=== PATIENT | female | born 1985 | race American Indian/Alaskan Native ===

== ENCOUNTER 2017-10-20 14:28 | Emergency (ER) | payer MEDICAID ==
[2017-10-20 16:02] LABS: Basophils % (Auto) 0.4 % (0.0-1.8); Eosinophils # (Auto) 0.2 K/mm3 (0.0-0.4); Eosinophils % (Auto) 2.4 % (0.0-4.3); Hematocrit 37.1 % (30.3-42.9); Hemoglobin 12.3 gm/dl (10.1-14.3); Lymphocytes # (Auto) 2.4 K/mm3 (1.2-5.4); Lymphocytes % (Auto) 27.4 % (13.4-35.0); Mean Corpuscular HGB Conc 33 % (30-34); Mean Corpuscular Hemoglobin 28 pg (28-32); Mean Corpuscular Volume 86 fl (79-97); Monocytes # (Auto) 0.5 K/mm3 (0.0-0.8); Monocytes % (Auto) 6.2 % (0.0-7.3); Platelet Count 332 K/mm3 (140-440); Red Blood Count 4.32 M/mm3 (3.65-5.03); Red Cell Distribution Width 14.2 % (13.2-15.2)
[2017-10-20 16:22] LABS: Alanine Aminotransferase 8 units/L (7-56); Albumin 4.3 g/dL (3.9-5); BUN/Creatinine Ratio 10; Blood Urea Nitrogen 6 mg/dL (7-17); Calcium 9.6 mg/dL (8.4-10.2); Hemolysis Index 12
[2017-10-20 16:43] LABS: Bilirubin,Urine NEG (Negative); Blood,Urine NEG (Negative); Color,Urine Amber (Yellow); Mucus,Urine 2+ /HPF; Nitrite,Urine NEG (Negative); Protein,Urine <15 mg/dL mg/dL (Negative); Urobilinogen,Urine < 2.0 mg/dL (<2.0)
--- NOTE | 2017-10-20 23:23 | Emergency Department Report ---
ED Female HPI - General Chief complaint: Abdominal Pain Stated complaint: FLU-LIKE SYMPTOMS Time Seen by Provider: 10/20/17 23:14 Source: patient, family Mode of arrival: Ambulatory Limitations: No Limitations - History of Present Illness Initial comments: Patient is 32 years old female 4, para 1 and 2 miscarriage. Patient presented with lower abdominal pain for the last 3 days associated with nausea and vomiting. Patient denied any diarrhea. Patient denied any vaginal bleeding or vaginal discharge. MD Complaint: pelvic pain -: week(s) Severity: moderate Severity scale (0 -10): 4 Quality: cramping Associated Symptoms: abdominal pain, nausea/vomiting. denies: vaginal discharge , vaginal bleeding, headaches, loss of appetite, dysuria - Related Data Sexually active: Yes : 4 Para: 1 A: 2 Allergies Allergy/AdvReac Type Severity Reaction Status Date / Time shellfish derived Allergy Shortness Verified 10/20/17 15:37 of Breath ED Review of Systems ROS: Stated complaint: FLU-LIKE SYMPTOMS Other details as noted in HPI Comment: All other systems reviewed and negative Constitutional: denies: chills, fever Respiratory: denies: cough, shortness of breath, SOB with exertion Gastrointestinal: abdominal pain, nausea, vomiting. denies: diarrhea, constipation, hematemesis Genitourinary: denies: urgency, dysuria, frequency, hematuria Musculoskeletal: denies: back pain, joint swelling Neurological: denies: headache, weakness, numbness, paresthesias ED Past Medical Hx - Surgical History Past Surgical History?: No - Social History Smoking Status: Never Smoker Substance Use Type: None ED Physical Exam - General Limitations: No Limitations General appearance: alert, in no apparent distress - Head Head exam: Present: atraumatic, normocephalic, normal inspection - Eye Eye exam: Present: normal appearance, PERRL, EOMI - Neck Neck exam: Present: normal inspection, full ROM. Absent: tenderness, meningismus - Respiratory Respiratory exam: Present: normal lung sounds bilaterally. Absent: respiratory distress, wheezes, rales, rhonchi, stridor, chest wall tenderness, accessory muscle use, decreased breath sounds, prolonged expiratory - Cardiovascular Cardiovascular Exam: Present: regular rate, normal rhythm, normal heart sounds - GI/Abdominal GI/Abdominal exam: Present: soft, normal bowel sounds. Absent: distended, tenderness, guarding, rebound, rigid, organomegaly, mass, bruit, pulsatile mass , hernia - Extremities Exam Extremities exam: Present: normal inspection, full ROM, normal capillary refill. Absent: tenderness, pedal edema, joint swelling, calf tenderness - Back Exam Back exam: Present: normal inspection, full ROM. Absent: CVA tenderness (R), CVA tenderness (L) - Neurological Exam Neurological exam: Present: alert, oriented X3, CN II-XII intact, normal gait - Skin Skin exam: Present: warm, intact, normal color. Absent: cyanosis, diaphoretic, erythema ED Course Vital Signs 10/20/17 15:39 Temperature 99 F Pulse Rate 75 Respiratory 20 Rate Blood Pressure 110/69 O2 Sat by Pulse 100 Oximetry - Reevaluation(s) Reevaluation #1: 10/21/17 01:01 Patient stated that she is feeling better, she denied any vaginal bleeding or discharge. No vomiting. I informed the patient about her ultrasounds results and the need to follow-up with her OB in the next 2-3 days. ED Medical Decision Making - Lab Data Result diagrams: 10/20/17 15:51 10/20/17 15:51 - Radiology Data Radiology results: report reviewed Referring Physician: WOOD GOETZ Patient Name: JAE CHANDLER Date of : 1985 Sex: Female Report Date: 2017-10-20 Report Status: Finalized Findings [facility] [address] [place] [address] Ultrasound Report Signed Patient: JAE CHANDLER MR#: [id number] : 1985 Acct:[id number] Age/Sex: 32 / F ADM Date: 10/20/17 Loc: ED Attending Dr: Ordering Physician: WOOD GOETZ Date of Service: 10/20/17 Procedure(s): US OB transvaginal Accession Number(s): [id number] cc: WOOD GOETZ FINAL REPORT EXAM: US OB TRANSVAGINAL HISTORY: ABDOMINAL PAIN COMPARISON: None available. TECHNIQUE: Several real-time grayscale and color Doppler images were obtained. Transabdominal and transvaginal exam. FINDINGS: Uterus measures 10.0 x 5.8 x 6.9 centimeters. There is a single live IUP. Estimated gestational age 7 weeks 2 days. Estimated delivery date June 06, 2018. heart rate 141 beats per minute. Right ovary measures 2.7 x 1.4 x 1.2 centimeters. The left ovary measures 4.0 x 3.0 x 2.6 centimeters. Within the left ovary is a 3.3 centimeter cystic structure which may reflect corpus luteum. There is gross vascular flow to the ovaries. No adnexal masses are demonstrated. Moderate subchorionic hemorrhage measuring 1.3 x 0.8 centimeters. IMPRESSION: Single live IUP. Estimated gestational age 7 weeks 2 days. Small to moderate subchorionic hemorrhage. 3.3 centimeter left ovarian cystic structure which may reflect corpus luteum. No adnexal masses. Transcribed By: LMA Dictated By: SHERIE CARRASCO MD Electronically Authenticated By: SHERIE CARRASCO MD Signed Date/Time: 10/20/172009 DD/ 09 TD/TT: 10/20/172009 Critical care attestation.: If time is entered above; I have spent that time in minutes in the direct care of this critically ill patient, excluding procedure time. ED Disposition Clinical Impression: Abdominal pain affecting Disposition: DC-01 TO HOME OR SELFCARE Is pt being admited?: No Condition: Stable Instructions: Abdominal Pain in (ED) Referrals: PRIMARY CAREMD [Primary Care Provider] - 3-5 Days
--- NOTE | 2017-10-21 00:14 | Ultrasound Report ---
FINAL REPORT EXAM: US OB < = 14 WEEKS FETUS HISTORY: ABDOMINAL PAIN COMPARISON: None available. TECHNIQUE: Several real-time grayscale and color Doppler images were obtained. Transabdominal and transvaginal exam. FINDINGS: Uterus measures 10.0 x 5.8 x 6.9 centimeters. There is a single live IUP. Estimated gestational age 7 weeks 2 days. Estimated delivery date June 06, 2018. heart rate 141 beats per minute. Right ovary measures 2.7 x 1.4 x 1.2 centimeters. The left ovary measures 4.0 x 3.0 x 2.6 centimeters. Within the left ovary is a 3.3 centimeter cystic structure which may reflect corpus luteum. There is gross vascular flow to the ovaries. No adnexal masses are demonstrated. Moderate subchorionic hemorrhage measuring 1.3 x 0.8 centimeters. IMPRESSION: Single live IUP. Estimated gestational age 7 weeks 2 days. Small to moderate subchorionic hemorrhage. 3.3 centimeter left ovarian cystic structure which may reflect corpus luteum. No adnexal masses.
[2017-10-21 01:13] VITALS: BP 110/68
== END 2017-10-21 01:15 | disposition home or self-care (01) ==
LOC: ED 14:28
DX: O26.891 Other specified pregnancy related conditions, first trimester (principal); R10.9 Unspecified abdominal pain; Z91.013 Allergy to seafood; Z3A.01 Less than 8 weeks gestation of pregnancy
CPT/HCPCS: 36415; 76801; 76817; 80053; 81001; 84702; 85025; 86900; 86901; 99284